=== PATIENT | male | born 1960 | race Caucasian/White ===

== ENCOUNTER → 2019-02-20 | Outpatient (CLI) | payer BC, MEDICARE | LOC: LABWHC1 07:56 | DX: Z51.81 Encounter for therapeutic drug level monitoring (principal); Z79.899 Other long term (current) drug therapy | CPT/HCPCS: 36415 ==

== ENCOUNTER → 2020-02-14 | Outpatient (CLI) | payer BC, MEDICARE ==
[2020-02-14 18:15] LABS: ALT 23 U/L (10-49); AST 25 U/L (14-35)
[2020-02-14 18:28] LABS: Hepatitis A Antibody IgM Non-Reactive (Non-Reactive); Hepatitis B Core IgM Non-Reactive (Non-Reactive); Hepatitis B Surface Antigen Non-Reactive (Non-Reactive); Hepatitis C IgG Antibody Non-Reactive (Non-Reactive)
== END | disposition home or self-care (01) ==
LOC: LABWHC1 08:55
PROVIDERS: ATTEND Internal Medicine
DX: R94.5 Abnormal results of liver function studies (principal); R16.0 Hepatomegaly, not elsewhere classified
CPT/HCPCS: 36415; 80074; 84450; 84460

== ENCOUNTER → 2020-02-15 | Outpatient (CLI) | payer BC, MEDICARE ==
--- NOTE | 2020-02-15 11:06 | US ---
EXAMINATION TYPE: US liver DATE OF EXAM: 02/15/2020 COMPARISON: NONE CLINICAL HISTORY: R94.5 Abnormal Liver Function. Elevated liver enzymes, bloating x 2 to 3 months EXAM MEASUREMENTS: Liver Length: 15.1 cm Gallbladder Wall: 0.2 cm CBD: 0.5 cm Right Kidney: 9.6 x 5.2 x 4.3 cm Pancreas: obscured by overlying midline bowel gas Liver: mildly heterogeneous Gallbladder: wnl Evidence for sonographic Diego's sign: no CBD: visualized portions wnl, limited by overlying bowel gas Right Kidney: multiple tiny echogenic foci scattered throughout IMPRESSION: Mild fatty liver. Nonobstructing nephrolithiasis.
== END | disposition home or self-care (01) ==
LOC: RADUSWWP 10:32
PROVIDERS: ATTEND Internal Medicine
DX: K76.0 Fatty (change of) liver, not elsewhere classified (principal); N20.0 Calculus of kidney
CPT/HCPCS: 76705

== ENCOUNTER 2021-02-09 06:10 | Emergency (ER) | payer BC, MEDICARE ==
[2021-02-09 06:23] VITALS: TEMP 97.8
--- NOTE | 2021-02-09 07:26 | ED ---
Extremity Problem HPI - General Chief complaint: Extremity Problem,Nontraumatic Stated complaint: Poss Blood Clot in legs Time Seen by Provider: 02/09/21 06:28 Source: patient Mode of arrival: ambulatory Limitations: no limitations - History of Present Illness Initial comments: Patient is a 61-year-old male with history of ankylosing spondylitis, vascul itis, presenting to the emergency department with concerns of a possible blood clot in his bilateral lower legs. He states he does have history of blood clots in his legs as well as multiple PEs however they took him off his blood thinner secondary to his vasculitis. He has been off her blood thinners for a few years now. He states over the past 2-3 days he's noticed increased pain in his bilat eral lower calf, he states the left is worse than the right. He denies any falls or trauma, he normally walks with a cane. He wants to make sure this is not a blood clot versus his normal aches and pains. He denies any surgeries of his legs in the past. He does admit to bilateral hip replacement, and left knee replacement. He denies any chest pain or shortness of breath, no cough. He has no further complaints at this time. His vital signs are stable upon arrival. - Related Data Home Medications Medication Instructions Recorded Confirmed Lisinopril-Hctz 10-12.5 mg 1 each PO DAILY 12/15/13 12/15/13 [Zestoretic 10-12.5] Methadone [Dolophine] 10 mg PO QID 12/15/13 12/19/13 Zolpidem [Ambien] 10 mg PO HS 12/15/13 12/19/13 predniSONE 10 mg PO DAILY 12/15/13 12/15/13 Allergies Allergy/AdvReac Type Severity Reaction Status Date / Time No Known Allergies Allergy Verified 12/15/13 13:36 Review of Systems ROS Statement: Those systems with pertinent positive or pertinent negative responses have been documented in the HPI. ROS Other: All systems not noted in ROS Statement are negative. Past Medical History Past Medical History: GI Bleed, Hypertension Additional Past Medical History / Comment(s): ANKYLOSING SPONDYLITIS, HX OF POLYPS, SPONTANEOUS PNEUMOTHORAX X3 LT LUNG, PULMONARY EMBOLUS X2. PT STATES HE GOES TO [facility] Q 3 MONTHS FOR PROBLEMS WITH HIS BLOOD COUNT. History of Any Multi-Drug Resistant Organisms: None Reported Past Surgical History: Joint Replacement Additional Past Surgical History / Comment(s): ALESHA HIP REPLACEMENT, LT KNEE REPLACEMENT Past Anesthesia/Blood Transfusion Reactions: No Reported Reaction, Motion Sickness Past Psychological History: No Psychological Hx Reported Smoking Status: Never smoker Past Alcohol Use History: Rare Past Drug Use History: None Reported General Exam - General Exam Comments Initial Comments: GENERAL: Patient is well-developed and well-nourished. Patient is nontoxic and in no acute distress. HEAD: Atraumatic, normocephalic. EYES: Pupils equal round and reactive to light, extraocular movements intact, sclera anicteric, conjunctiva are normal. Eyelids were unremarkable. ENT: Moist mucous membranes. NECK: Normal range of motion, supple without lymphadenopathy or JVD. LUNGS: Unlabored respirations. Breath sounds clear to auscultation bilaterally and equal. No wheezes rales or rhonchi. HEART: Regular rate and rhythm without murmurs, rubs or gallops. ABDOMEN: Soft, nontender, normoactive bowel sounds. No guarding, no rebound. No masses appreciated. : Deferred MUSCULOSKELETAL: Normal extremities with adequate strength and normal range of motion, no pitting or edema. No clubbing or cyanosis. Pain with palpation of bilateral lower calf, left greater than the right. No erythema, no obvious swelling. Neurovascular intact bilateral lower extremities. NEUROLOGICAL: Patient is alert and oriented x 3. Normal speech, normal gait. PSYCH: Normal mood, normal affect. SKIN: Warm, Dry, normal turgor, no rashes or lesions noted. Limitations: no limitations Course Vital Signs 02/09/21 02/09/21 06:14 08:29 Temperature 97.8 F Pulse Rate 70 63 Respiratory 16 18 Rate Blood Pressure 131/99 145/77 O2 Sat by Pulse 96 99 Oximetry Medical Decision Making - Medical Decision Making Patient is a 61-year-old male with history of ankylosing spondylitis, vasculitis, presenting with bilateral lower calf pain increasing over the past 2-3 days. He's had a history of PEs, is no longer on blood thinners. His vital signs are stable. Her injury or trauma to his lower legs causes pain. Ultrasound of bilateral lower extremities is slightly limited due to patient's pain tolerance, there is a slight color defect within the mid left femoral vein and the pain appears to compress incompletely, this could relate to a small nonocclusive thrombus, no signs of an acute DVT is seen today. I discussed these findings with the patient. Recommend following up with his PCP. He is agreeable splenic care and is stable for discharge. Case discussed with Dr. Bartholomew. Return parameters were discussed with him and he verbalized understanding. Disposition Clinical Impression: Bilateral lower extremity pain Disposition: HOME SELF-CARE Condition: Stable Instructions (If sedation given, give patient instructions): Leg Pain (ED) Additional Instructions: Please return to the Emergency Department if symptoms worsen or any other concerns. Please follow-up with your primary care physician as discussed. Is patient prescribed a controlled substance at d/c from ED?: No Referrals: Stephanie Valdovinos MD [Primary Care Provider] - 1-2 days Time of Disposition: 08:51
--- NOTE | 2021-02-09 08:23 | US ---
EXAMINATION TYPE: US venous doppler duplex LE DATE OF EXAM: 02/09/2021 7:48 AM COMPARISON: US CLINICAL HISTORY: pain, swelling, hx of clots, no thinners. Pain and swelling in legs. Hx DVT and PE. Patient does not take blood thinners. SIDE PERFORMED: Bilateral TECHNIQUE: The lower extremity deep venous system is examined utilizing real time linear array sonog domonique with graded compression, doppler sonography and color-flow sonography. VESSELS IMAGED: Common Femoral Vein Deep Femoral Vein Greater Saphenous Vein * Femoral Vein Popliteal Vein Small Saphenous Vein * Proximal Calf Veins (* superficial vessels) Exam is limited due to patient pain tolerance. Right Leg: Color flow seen in veins imaged. Veins imaged appear to compress. Left Leg: Difficult to compress veins in the left leg possibly due to pain tolerance. Slight color d efect seen within mid left femoral vein segment. Left mid femoral vein appears to compress incomplete ly. IMPRESSION: 1. Exam is limited due to patient pain tolerance. 2. Slight color defect seen within mid left femoral vein segment and the mid left femoral vein appea rs to compress incompletely. Findings could relate to small, nonocclusive thrombus.
[2021-02-09 08:32] VITALS: BP 145/77; PULSE 63; RESP 18
== END 2021-02-09 08:56 | disposition home or self-care (01) ==
LOC: EC 06:10
DX: M79.605 Pain in left leg (principal); M79.604 Pain in right leg; I10 Essential (primary) hypertension; Z86.711 Personal history of pulmonary embolism; Z79.899 Other long term (current) drug therapy
CPT/HCPCS: 93970; 99283

== ENCOUNTER → 2021-09-22 | Outpatient (CLI) | payer BC, MEDICARE ==
[2021-09-22 14:51] LABS: Basophils # (A) 0.03 X 10*3/uL (0.00-0.10); Basophils % (A) 0.4 %; Eosinophils # (A) 0.04 X 10*3/uL (0.04-0.35); Eosinophils % (A) 0.5 %; HCT 39.8 % (39.6-50.0); HGB 12.9 g/dL (13.0-17.0); Immature Grans, Automated 0.4 %; Lymphocytes # (A) 2.37 X 10*3/uL (0.90-5.00); MCH 32.8 pg (27.0-32.0); MCHC 32.4 g/dL (32.0-37.0); MCV 101.3 fL (80.0-97.0); Mean Platelet Volume 10.2 fL (9.5-12.2); Monocytes # (A) 0.69 X 10*3/uL (0.20-1.00); Monocytes % (A) 8.5 %; NRBC Per 100 WBC 0 /100 WBCS (0.0-0.0); Neutrophils % (A) 61.2 %; Platelet Count 199 X 10*3/uL (140-440); RBC 3.93 X 10*6/uL (4.40-5.60); RDW 12.8 % (11.5-14.5); WBC 8.16 X 10*3/uL (4.50-10.00)
[2021-09-22 15:10] LABS: ALT 17 U/L (10-49); AST 24 U/L (14-35); African American GFR (CKD) 69.2 (60.0-200.0); Albumin 4.5 g/dL (3.8-4.9); Albumin/Globulin Ratio 1.96 (1.60-3.17); Alkaline Phosphatase 63 U/L (41-126); Bilirubin, Conjugated <0.20 mg/dL (0.20-0.40); Globulin 2.3 g/dL (1.6-3.3); Non-African American GFR(CKD) 59.7 (60.0-200.0); Total Protein 6.8 g/dL (6.2-8.2)
[2021-09-22 15:19] LABS: Hepatitis B Surface AB- Quant 3.5 mIU/mL; Hepatitis B Surface Antibody Nonreactive (Nonreactive)
[2021-09-22 15:25] LABS: Hepatitis B Core IgM Nonreactive (Nonreactive); Hepatitis B Surface Antigen Nonreactive (Nonreactive)
[2021-09-22 16:01] LABS: Erythrocyte Sedimentation Rate 22 mm/Hr (0-20)
== END | disposition home or self-care (01) ==
LOC: LABWHC1 09:19
PROVIDERS: ATTEND Internal Medicine Rheumatology
DX: D84.821 Immunodeficiency due to drugs (principal); T38.0X5A Adverse effect of glucocorticoids and synthetic analogues, initial encounter; Z79.52 Long term (current) use of systemic steroids
CPT/HCPCS: 36415; 80076; 82565; 85025; 85652; 86140; 86704; 86705; 86706; 87340

== ENCOUNTER → 2021-10-22 | Outpatient (CLI) | payer BC, MEDICARE ==
[2021-10-22 17:02] VITALS: BP 149/90; PULSE 94; TEMP 97.8; BMI 42.3
--- NOTE | 2021-10-22 17:28 | P.HPBAR ---
Bariatric H&P - History & Physicial H&P Date: 10/22/21 History & Physicial: Visit/CC: new patient Patient initial contact: Initial weight: Initial weight in pounds: Height: 5 ft 5.75 in Initial BMI: Last weight: Current weight: 117.934 kg Current weight in pounds: 260.00 Current BMI: 42.3 [place] body weight (based on NIH guidelines): 63.73 kg Excess body weight loss: The patient is a 61 year-old M who presents for Bariatric Assessment. Highest weight of 275 pounds. He was on prednisone of 60 mg daily. He has ankloysis spondllyisis. He presents with a cane. He stopped drinking candy, pop, and ice cream. He had EGD and colon. He has history of blood clots 5 to 6 years ago in the legs. He had EGD and colon at [facility] last year. Recommend esophagram. Reommend bariatric labs. Has history of h pylori. Family of colon cancer. Has [facility] Past Medical History Past Medical History: GI Bleed, Hypertension Additional Past Medical History / Comment(s): ANKYLOSING SPONDYLITIS, HX OF POLYPS, SPONTANEOUS PNEUMOTHORAX X3 LT LUNG, PULMONARY EMBOLUS X2. PT STATES HE GOES TO [facility] Q 3 MONTHS FOR PROBLEMS WITH HIS BLOOD COUNT. History of Any Multi-Drug Resistant Organisms: None Reported Past Surgical History: Joint Replacement Additional Past Surgical History / Comment(s): ALESHA HIP REPLACEMENT, LT KNEE REPLACEMENT Past Anesthesia/Blood Transfusion Reactions: No Reported Reaction, Motion Sickness Past Psychological History: No Psychological Hx Reported Smoking Status: Never smoker Past Alcohol Use History: Rare Past Drug Use History: None Reported Surgical - Exam Vital Signs Temp Pulse BP 97.8 F 94 149/90 10/22/21 16:52 10/22/21 16:52 10/22/21 16:52 Bariatric Checklist Checklist: Plan: Checklist: EGD: 1. Hiatal hernia: 2. H. Pylori: HgbA1c: Vitamin D: Smoking: Never smoker Primary care physician referral: Dr. Valdovinos Psychiatry clearance: Cardiology clearance: Sleep study: Diet journal: VTE risk score: VTE risk level: Rehab needs at discharge:
== END | disposition home or self-care (01) ==
LOC: BARWHC3 14:42
PROVIDERS: ATTEND Surgery Plastic and Reconstructive Surgery
DX: Z48.815 Encounter for surgical aftercare following surgery on the digestive system (principal)
CPT/HCPCS: 99211

== ENCOUNTER → 2021-10-24 | Outpatient (CLI) | payer BC, MEDICARE ==
[2021-10-24 10:24] LABS: INR 0.9 (<1.2); Partial Thromboplastin Time 22.6 sec (22.0-30.0); Prothrombin Time 9.6 sec (9.0-12.0)
[2021-10-24 14:57] LABS: HCT 39.4 % (39.6-50.0); MCH 33.2 pg (27.0-32.0); MCV 100.8 fL (80.0-97.0); Mean Platelet Volume 10.1 fL (9.5-12.2); NRBC Per 100 WBC 0 /100 WBCS (0.0-0.0); Platelet Count 190 X 10*3/uL (140-440); RBC 3.91 X 10*6/uL (4.40-5.60); RDW 12.8 % (11.5-14.5); WBC 7.75 X 10*3/uL (4.50-10.00)
[2021-10-24 15:14] LABS: % Iron Saturation 17.75 (15.00-50.00); ALT 22 U/L (10-49); AST 22 U/L (14-35); African American GFR (CKD) 76.3 (60.0-200.0); Albumin 4.4 g/dL (3.8-4.9); Albumin/Globulin Ratio 1.69 (1.60-3.17); Alkaline Phosphatase 59 U/L (41-126); BUN/Creat Ratio 16.75 Ratio (12.00-20.00); Blood Urea Nitrogen 20.1 mg/dL (9.0-27.0); Calcium 8.9 mg/dL (8.7-10.3); Carbon Dioxide 20.7 mmol/L (20.0-27.5); Chloride 103 mmol/L (96-109); Globulin 2.6 g/dL (1.6-3.3); Glucose 110 mg/dL (70-110); Iron 57 ug/dL (65-175); Non-African American GFR(CKD) 65.8 (60.0-200.0); Phosphorus 3.1 mg/dL (2.4-5.1); Potassium 4.1 mmol/L (3.5-5.5); Sodium 137 mmol/L (135-145); Total Iron Binding Capacity 323 ug/dL (228-460)
[2021-10-24 15:34] LABS: Chol/HDL Ratio 3.24 Ratio; LDL Cholesterol,Calculated 103.7 mg/dL (0.0-131.0)
[2021-10-27 08:56] LABS: Vit B1(Thiamine) 93 ug/L (38-122)
[2021-10-27 16:08] LABS: Zinc, Serum 73 ug/dL (60-130)
[2021-10-27 17:26] LABS: Selenium 106 mcg/L (63-160)
[2021-10-28 09:33] LABS: Anabasine Urine <2.0 ng/mL (<2.0)
[2021-10-29 08:38] LABS: Vitamin A 75 ug/dL (38-106)
== END | disposition home or self-care (01) ==
LOC: LABWHC1 09:10
PROVIDERS: ATTEND Surgery Plastic and Reconstructive Surgery
DX: E66.01 Morbid (severe) obesity due to excess calories (principal); D50.8 Other iron deficiency anemias; D50.9 Iron deficiency anemia, unspecified; K91.2 Postsurgical malabsorption, not elsewhere classified; E46 Unspecified protein-calorie malnutrition; K74.1 Hepatic sclerosis; N19 Unspecified kidney failure; T56.894A Toxic effect of other metals, undetermined, initial encounter; K50.90 Crohn's disease, unspecified, without complications
CPT/HCPCS: 36415; 80053; 80061; 80307; 80323; 82306; 82525; 82607; 82728; 82746; 83036; 83540; 83550; 83735; 83970; 84100; 84134; 84255; 84425; 84443; 84590; 84630; 85027; 85610; 85730; 93005

== ENCOUNTER 2021-11-24 10:43 | Day surgery (SDC) | payer BC, MEDICARE ==
[2021-11-21 10:52] VITALS: BMI 43.6
--- NOTE | 2021-11-24 07:29 | P.GSHP ---
History of Present Illness H&P Date: 11/24/21 CHIEF COMPLAINT: GERD HISTORY OF PRESENT ILLNESS: The patient is a 61-year-old male who presents reports gastroesophageal reflux disease. Upper endoscopy was offered for further evaluation and management. PAST MEDICAL HISTORY: Please see list. PAST SURGICAL HISTORY: Please see list. MEDICATIONS: Please see list. ALLERGIES: Please see list. SOCIAL HISTORY: No illicit drug use FAMILY HISTORY: No reports of Crohn disease or ulcerative colitis. REVIEW OF ORGAN SYSTEMS: CONSTITUTIONAL: No reports of fevers or chills. GI: Denies any blood in stools or constipation. PHYSICAL EXAM: VITAL SIGNS: Stable GENERAL: Well-developed and pleasant in no acute distress. HEENT: No scleral icterus. Extraocular movements grossly intact. Moist buccal mucosa. NECK: Supple without lymphadenopathy. CHEST: Unlabored respirations. Equal bilateral excursions. CARDIOVASCULAR: Regular rate and rhythm. Distal 2+ pulses. ABDOMEN: Soft, nondistended. MUSCULOSKELETAL: No clubbing, cyanosis, or edema. ASSESSMENT: 1. Gastroesophageal reflux disease PLAN: 1. Recommend proceeding with an upper endoscopy Past Medical History Past Medical History: Cancer, GI Bleed, Hypertension, Pulmonary Embolus (PE) Additional Past Medical History / Comment(s): ANKYLOSING SPONDYLITIS, HX OF POLYPS, SPONTANEOUS PNEUMOTHORAX X3 LT LUNG, PULMONARY EMBOLUS X2. PT STATES HE GOES TO [facility] Q 3 MONTHS FOR PROBLEMS WITH HIS BLOOD COUNT. skin cancer History of Any Multi-Drug Resistant Organisms: None Reported Past Surgical History: Joint Replacement Additional Past Surgical History / Comment(s): ALESHA HIP REPLACEMENT, LT KNEE REPLACEMENT, skin cancer removed from left shoulder, colonoscopy< EGD Past Anesthesia/Blood Transfusion Reactions: Motion Sickness Smoking Status: Never smoker - Past Family History Father Additional Family Medical History / Comment(s): anklylosing spondylitis Medications and Allergies Home Medications Medication Instructions Recorded Confirmed Type Zolpidem [Ambien] 10 mg PO HS 12/15/13 11/21/21 History Abatacept [Orencia] 50 mg SQ FR 10/22/21 11/21/21 History Ergocalciferol [Vitamin D2 (1250 1,250 mcg PO DAILY 10/22/21 11/21/21 History Mcg = 60607 Iu)] Folic Acid 1 mg PO DAILY 10/22/21 11/21/21 History Leflunomide 10 mg PO DAILY 10/22/21 11/21/21 History lisinopriL [Zestril] 10 mg PO DAILY 10/22/21 11/21/21 History traZODone HCL 50 mg PO DAILY 10/22/21 11/21/21 History buprenorphine HCL [Belbuca] 1 film PO BID 10/27/21 11/21/21 History Allergies Allergy/AdvReac Type Severity Reaction Status Date / Time No Known Allergies Allergy Verified 11/21/21 10:41
[~2021-11-24 10:43] MED LIST: LACTATED RINGERS 1,000 ML IV SCH
[2021-11-24 11:05] VITALS: TEMP 97
[2021-11-24] MEDS ORDERED: LIDOCAINE 2% INJ 20 MG/ML (2 ML VIAL) ONE (11:55)
[2021-11-24] MEDS ORDERED: PROPOFOL 10 MG/ML 20 ML VIAL IV ONE (11:55)
--- NOTE | 2021-11-24 12:13 | P.PCN ---
Date of Procedure: 11/24/21 Description of Procedure: PREOPERATIVE DIAGNOSIS: Gastroesophageal reflux disease. Morbid obesity. POSTOPERATIVE DIAGNOSIS: Gastroesophageal reflux disease. Morbid obesity. Gastritis. OPERATION: Esophagogastroduodenoscopy with biopsies along antrum. SURGEON: Clary Burrell MD ANESTHESIA: MAC. INDICATIONS: The patient is a 61-year-old female who presents with reflux disease. Benefits and risks of the procedure were described. Informed consent was obtained. DESCRIPTION: The patient was brought into the endoscopy suite and laid in the left lateral decubitus position. An Olympus gastroscope was passed along the posterior oropharynx down to the distal esophagus where the squamocolumnar junction was encountered at 37 cm from the incisors. The stomach was entered and no bile reflux was found. Additional findings are listed below. Biopsies with cold forceps were obtained of the antrum. The first through third portion of the duodenum was examined. Retroflexion of the scope confirmed Hill grade 3 lower esophageal valve. The squamocolumnar junction demonstrated LA grade B erosive esophagitis. The stomach was desufflated. The patient tolerated the procedure well. FINDINGS: Squamocolumnar junction 37 cm from the incisors. Diaphragmatic hiatus at 37 cm. Hill grade 2 lower esophageal valve. LA grade B erosive esophagitis. No active duodenitis. Chronic gastritis RECOMMENDATIONS: Upper endoscopy as needed. Plan - Discharge Summary New Discharge Prescriptions: Continue Zolpidem [Ambien] 10 mg PO HS traZODone HCL 50 mg PO DAILY Folic Acid 1 mg PO DAILY Leflunomide 10 mg PO DAILY Ergocalciferol [Vitamin D2 (1250 Mcg = 02940 Iu)] 1,250 mcg PO DAILY Abatacept [Orencia] 50 mg SQ FR buprenorphine HCL [Belbuca] 1 film PO BID lisinopriL [Zestril] 10 mg PO DAILY Discharge Medication List Zolpidem [Ambien] 10 mg PO HS 12/15/13 [History] Abatacept [Orencia] 50 mg SQ FR 10/22/21 [History] Ergocalciferol [Vitamin D2 (1250 Mcg = 43015 Iu)] 1,250 mcg PO DAILY 10/22/21 [History] Folic Acid 1 mg PO DAILY 10/22/21 [History] Leflunomide 10 mg PO DAILY 10/22/21 [History] lisinopriL [Zestril] 10 mg PO DAILY 10/22/21 [History] traZODone HCL 50 mg PO DAILY 10/22/21 [History] buprenorphine HCL [Belbuca] 1 film PO BID 10/27/21 [History] [facility]Ref[place] [facility] Patient Instructions/Handouts: *Surgery [facility] - (Anesthesia) Endoscopy Discharge Instructions, Upper Endoscopy (DC) Discharge Disposition: HOME SELF-CARE
[2021-11-24 12:28] VITALS: BP 121/66; PULSE 50; RESP 18
== END 2021-11-24 12:51 | disposition home or self-care (01) ==
LOC: ORWHC2ENDO 10:43
PROVIDERS: ATTEND Surgery Plastic and Reconstructive Surgery
DX: K29.50 Unspecified chronic gastritis without bleeding (principal); K22.10 Ulcer of esophagus without bleeding; K21.9 Gastro-esophageal reflux disease without esophagitis; E66.01 Morbid (severe) obesity due to excess calories; I10 Essential (primary) hypertension; Z86.711 Personal history of pulmonary embolism; Z85.828 Personal history of other malignant neoplasm of skin; Z79.899 Other long term (current) drug therapy
CPT/HCPCS: 88305; 43239; J2704; J2001

== ENCOUNTER → 2021-12-10 | Outpatient (CLI) | payer BC, MEDICARE ==
[2021-12-10 14:07] VITALS: BP 149/81; PULSE 55; TEMP 98.1; BMI 42.9
--- NOTE | 2021-12-10 14:25 | P.BASOAP ---
Subjective Progress Note Date: 12/10/21 Looking into the sleeve. Labs reviewed. Recommend iron with MVI. EKG good. Plan for sleeve. He is doing okay. He is now going from band to sleeve. Risk reviewed with [facility] Objective - Vital Signs Vital signs: Vital Signs Temp 98.1 F 12/10/21 14:02 Pulse 55 L 12/10/21 14:02 Resp BP 149/81 12/10/21 14:02 Pulse Ox FiO2 Intake & Output 12/09/21 12/10/21 12/10/21 18:59 06:59 18:59 Weight 119.748 kg Assessment/Plan Plan: Date: 12/10/21 Initial Weight: Initial BMI: Current Weight: 119.748 kg Current BMI: 42.9 Type of Surgery: Total Volume in Band: Previous Volume: Volume Removed: Volume Added: Band Size:
== END | disposition home or self-care (01) ==
LOC: BARWHC3 13:27
PROVIDERS: ATTEND Surgery Plastic and Reconstructive Surgery
DX: Z48.815 Encounter for surgical aftercare following surgery on the digestive system (principal)
CPT/HCPCS: 99211

== ENCOUNTER → 2022-03-05 | Outpatient (CLI) | payer BC, MEDICARE ==
[2022-03-05 17:08] LABS: African American GFR (CKD) 70.7 (60.0-200.0)
== END | disposition home or self-care (01) ==
LOC: LABWHC1 08:09
PROVIDERS: ATTEND Internal Medicine Rheumatology
DX: T45.2X1A Poisoning by vitamins, accidental (unintentional), initial encounter (principal); N17.9 Acute kidney failure, unspecified
CPT/HCPCS: 36415; 82306; 82565

== ENCOUNTER 2022-06-15 15:12 | Emergency (ER) | payer BC, MEDICARE ==
--- NOTE | 2022-06-15 15:26 | ED ---
General Adult HPI <Reji Nielson - Last Filed: 06/15/22 15:22> - History of Present Illness Onset/Timin -: days(s) Location: abdomen Quality: burning Consistency: now resolved Improves with: none Worsens with: none Associated Symptoms: other (General bleeding) Treatments Prior to Arrival: none <Ran Martínez - Last Filed: 06/15/22 19:26> - General Stated complaint: GI Bleed - History of Present Illness Initial comments: Dictation was produced using [employer] dictation software. please excuse any grammatical, word or spelling errors. Medical screening exam: 62-year-old male presents emergency department for GI bleeding 3 days. Patient has a history of pulmonary embolism. States that he's been feeling short of breath. Patient has not been on anticoagulation medications for several months. Denies any calf tenderness. Patient spoke with rheumatology infusion center that told to come to the ER after he revealed to them that he has been having bright red blood per rectum. Does report having some vague periumbilical abdominal pain. He is also having rectal pressure. Patient well-appearing at the bedside in no acute distress. He is not gait ataxic. (Reji Nielson) Patient is a 62-year-old man presenting with approximately 3 days of abdominal symptoms and 2 days of passing blood with bowel movements. Patient states that 4 days ago he received injection of Remicade for his ankylosing spondylitis. The day after that he was having some upper abdominal burning discomfort. The day after that he noticed there was some bright red blood with bowel movements. He thought that this would all pass. He has continued to have some dark red blood today and a little bit of fatigue so he felt he should have an evaluation. There is no further abdominal discomfort now. (Ran Martínez) - Related Data Home Medications Medication Instructions Recorded Confirmed lisinopriL [Zestril] 10 mg PO DAILY 10/22/21 06/15/22 traZODone HCL 75 mg PO HS 10/22/21 06/15/22 Buprenorphine HCl/Naloxone HCl 0.5 film SL QID 06/15/22 06/15/22 [Suboxone 2 mg-0.5 mg Sl Film] Cholecalciferol [Vitamin D3 (25 50 mcg PO DAILY 06/15/22 06/15/22 Mcg = 1000 Iu)] predniSONE 10 mg PO DAILY 06/15/22 06/15/22 Allergies Allergy/AdvReac Type Severity Reaction Status Date / Time No Known Allergies Allergy Verified 11/24/21 11:09 Review of Systems ROS Other: All systems not noted in ROS Statement are negative. <Reji Nielson - Last Filed: 06/15/22 15:22> ROS Other: All systems not noted in ROS Statement are negative. Constitutional: Denies: fever, chills, weakness Respiratory: Denies: cough, dyspnea Cardiovascular: Denies: chest pain, palpitations, edema, syncope Endocrine: Reports: fatigue Gastrointestinal: Reports: as per HPI, abdominal pain. Denies: nausea, vomiting, diarrhea, constipation, melena, hematochezia Genitourinary: Denies: dysuria, hematuria Musculoskeletal: Denies: back pain Skin: Denies: rash Neurological: Denies: headache, weakness Hematological/Lymphatic: Denies: easy bleeding <Ran Martínez - Last Filed: 06/15/22 19:26> ROS Statement: Those systems with pertinent positive or pertinent negative responses have been documented in the HPI. Past Medical History Past Medical History: Cancer, GI Bleed, Hypertension, Pulmonary Embolus (PE) Additional Past Medical History / Comment(s): ANKYLOSING SPONDYLITIS, HX OF POLYPS, SPONTANEOUS PNEUMOTHORAX X3 LT LUNG, PULMONARY EMBOLUS X2. PT STATES HE GOES TO [facility] Q 3 MONTHS FOR PROBLEMS WITH HIS BLOOD COUNT. skin cancer History of Any Multi-Drug Resistant Organisms: None Reported Past Surgical History: Joint Replacement Additional Past Surgical History / Comment(s): ALESHA HIP REPLACEMENT, LT KNEE REPLACEMENT, skin cancer removed from left shoulder, colonoscopy< EGD Past Anesthesia/Blood Transfusion Reactions: Motion Sickness Past Psychological History: No Psychological Hx Reported Smoking Status: Never smoker Past Alcohol Use History: Rare Past Drug Use History: None Reported - Past Family History Father Additional Family Medical History / Comment(s): anklylosing spondylitis <Reji Nielson - Last Filed: 06/15/22 15:22> General Exam General appearance: alert, in no apparent distress Head exam: Present: atraumatic, normocephalic Eye exam: Present: normal appearance. Absent: scleral icterus, conjunctival injection Neck exam: Present: normal inspection Respiratory exam: Present: normal lung sounds bilaterally. Absent: respiratory distress, wheezes, rales, rhonchi, stridor Cardiovascular Exam: Present: normal rhythm, bradycardia, normal heart sounds. Absent: systolic murmur, diastolic murmur, rubs, gallop GI/Abdominal exam: Present: soft. Absent: distended, tenderness, guarding, rebound, rigid, mass Extremities exam: Present: normal inspection, normal capillary refill. Absent: pedal edema, calf tenderness Back exam: Present: normal inspection. Absent: CVA tenderness (R), CVA tenderness (L) Neurological exam: Present: alert Skin exam: Present: warm, dry, intact, normal color. Absent: rash <Ran Martínez - Last Filed: 06/15/22 19:26> Course Vital Signs 06/15/22 06/15/22 15:37 18:00 Temperature 97.7 F Pulse Rate 50 L 49 L Respiratory 16 18 Rate Blood Pressure 167/74 116/87 O2 Sat by Pulse 96 98 Oximetry Medical Decision Making - Lab Data Result diagrams: 06/15/22 17:03 06/15/22 17:03 - EKG Data -: EKG Interpreted by Ar EKG shows normal: sinus rhythm, axis (Normal), intervals (Normal), QRS complexes (Normal), ST-T waves (Normal) Rate: bradycardia (Rate 48 bpm) <Ran Martínez - Last Filed: 06/15/22 19:26> - Lab Data Lab Results 06/15/22 06/15/22 06/15/22 Range/Units 17:03 17:03 17:03 WBC 9.2 (3.8-10.6) k/uL RBC 4.25 L (4.30-5.90) m/uL Hgb 14.1 (13.0-17.5) gm/dL Hct 40.9 (39.0-53.0) % MCV 96.4 (80.0-100.0) fL MCH 33.2 (25.0-35.0) pg MCHC 34.4 (31.0-37.0) g/dL RDW 13.5 (11.5-15.5) % Plt Count 195 (150-450) k/uL MPV 7.2 Neutrophils % 49 % Lymphocytes % 43 % Monocytes % 5 % Eosinophils % 2 % Basophils % 1 % Neutrophils # 4.5 (1.3-7.7) k/uL Lymphocytes # 4.0 (1.0-4.8) k/uL Monocytes # 0.4 (0-1.0) k/uL Eosinophils # 0.2 (0-0.7) k/uL Basophils # 0.1 (0-0.2) k/uL PT 9.6 (9.0-12.0) sec INR 0.9 (<1.2) APTT 23.2 (22.0-30.0) sec D-Dimer 0.22 (<0.60) mg/L FEU Sodium 136 L (137-145) mmol/L Potassium 4.6 (3.5-5.1) mmol/L Chloride 104 (98-107) mmol/L Carbon Dioxide 24 (22-30) mmol/L Anion Gap 8 mmol/L BUN 16 (9-20) mg/dL Creatinine 1.19 (0.66-1.25) mg/dL Est GFR (CKD-EPI)AfAm 76 (>60 ml/min/1.73 sqM) Est GFR (CKD-EPI)NonAf 66 (>60 ml/min/1.73 sqM) Glucose 94 (74-99) mg/dL Plasma Lactic Acid Loco (0.7-2.0) mmol/L Calcium 8.8 (8.4-10.2) mg/dL Magnesium 1.9 (1.6-2.3) mg/dL Total Bilirubin 0.7 (0.2-1.3) mg/dL AST 30 (17-59) U/L ALT 21 (4-49) U/L Alkaline Phosphatase 50 (38-126) U/L Troponin I (0.000-0.034) ng/mL Total Protein 8.0 (6.3-8.2) g/dL Albumin 4.5 (3.5-5.0) g/dL Stool Occult Blood (Negative) Blood Type Blood Type Recheck Bld Type Recheck Status Antibody Screen Spec Expiration Date 06/15/22 06/15/22 06/15/22 Range/Units 17:03 17:03 17:03 WBC (3.8-10.6) k/uL RBC (4.30-5.90) m/uL Hgb (13.0-17.5) gm/dL Hct (39.0-53.0) % MCV (80.0-100.0) fL MCH (25.0-35.0) pg MCHC (31.0-37.0) g/dL RDW (11.5-15.5) % Plt Count (150-450) k/uL MPV Neutrophils % % Lymphocytes % % Monocytes % % Eosinophils % % Basophils % % Neutrophils # (1.3-7.7) k/uL Lymphocytes # (1.0-4.8) k/uL Monocytes # (0-1.0) k/uL Eosinophils # (0-0.7) k/uL Basophils # (0-0.2) k/uL PT (9.0-12.0) sec INR (<1.2) APTT (22.0-30.0) sec D-Dimer (<0.60) mg/L FEU Sodium (137-145) mmol/L Potassium (3.5-5.1) mmol/L Chloride (98-107) mmol/L Carbon Dioxide (22-30) mmol/L Anion Gap mmol/L BUN (9-20) mg/dL Creatinine (0.66-1.25) mg/dL Est GFR (CKD-EPI)AfAm (>60 ml/min/1.73 sqM) Est GFR (CKD-EPI)NonAf (>60 ml/min/1.73 sqM) Glucose (74-99) mg/dL Plasma Lactic Acid Loco 0.7 (0.7-2.0) mmol/L Calcium (8.4-10.2) mg/dL Magnesium (1.6-2.3) mg/dL Total Bilirubin (0.2-1.3) mg/dL AST (17-59) U/L ALT (4-49) U/L Alkaline Phosphatase (38-126) U/L Troponin I <0.012 (0.000-0.034) ng/mL Total Protein (6.3-8.2) g/dL Albumin (3.5-5.0) g/dL Stool Occult Blood (Negative) Blood Type O Positive Blood Type Recheck O Pos Bld Type Recheck Status No Antibody Screen NEGATIVE Spec Expiration Date 06/18/2022230206/15/22 Range/Units 18:43 WBC (3.8-10.6) k/uL RBC (4.30-5.90) m/uL Hgb (13.0-17.5) gm/dL Hct (39.0-53.0) % MCV (80.0-100.0) fL MCH (25.0-35.0) pg MCHC (31.0-37.0) g/dL RDW (11.5-15.5) % Plt Count (150-450) k/uL MPV Neutrophils % % Lymphocytes % % Monocytes % % Eosinophils % % Basophils % % Neutrophils # (1.3-7.7) k/uL Lymphocytes # (1.0-4.8) k/uL Monocytes # (0-1.0) k/uL Eosinophils # (0-0.7) k/uL Basophils # (0-0.2) k/uL PT (9.0-12.0) sec INR (<1.2) APTT (22.0-30.0) sec D-Dimer (<0.60) mg/L FEU Sodium (137-145) mmol/L Potassium (3.5-5.1) mmol/L Chloride (98-107) mmol/L Carbon Dioxide (22-30) mmol/L Anion Gap mmol/L BUN (9-20) mg/dL Creatinine (0.66-1.25) mg/dL Est GFR (CKD-EPI)AfAm (>60 ml/min/1.73 sqM) Est GFR (CKD-EPI)NonAf (>60 ml/min/1.73 sqM) Glucose (74-99) mg/dL Plasma Lactic Acid Loco (0.7-2.0) mmol/L Calcium (8.4-10.2) mg/dL Magnesium (1.6-2.3) mg/dL Total Bilirubin (0.2-1.3) mg/dL AST (17-59) U/L ALT (4-49) U/L Alkaline Phosphatase (38-126) U/L Troponin I (0.000-0.034) ng/mL Total Protein (6.3-8.2) g/dL Albumin (3.5-5.0) g/dL Stool Occult Blood Negative (Negative) Blood Type Blood Type Recheck Bld Type Recheck Status Antibody Screen Spec Expiration Date Disposition <NagaReji D - Last Filed: 06/15/22 15:22> Is patient prescribed a controlled substance at d/c from ED?: No <Ran Martínez - Last Filed: 06/15/22 19:26> Clinical Impression: GI bleeding Disposition: HOME SELF-CARE Condition: Good Instructions (If sedation given, give patient instructions): Gastrointestinal Bleeding (ED) Referrals: Stephanie Valdovinos MD [Primary Care Provider] - 1-2 days Sara Flynn MD [STAFF PHYSICIAN] - 1-2 days
[2022-06-15 15:39] VITALS: TEMP 97.7
[2022-06-15 17:16] LABS: Basophils # (A) 0.1 k/uL (0-0.2); Basophils % (A) 1 %; Eosinophils # (A) 0.2 k/uL (0-0.7); Eosinophils % (A) 2 %; HCT 40.9 % (39.0-53.0); HGB 14.1 gm/dL (13.0-17.5); Lymphocytes % (A) 43 %; MCH 33.2 pg (25.0-35.0); MCHC 34.4 g/dL (31.0-37.0); MCV 96.4 fL (80.0-100.0); Mean Platelet Volume 7.2; Monocytes # (A) 0.4 k/uL (0-1.0); Monocytes % (A) 5 %; Neutrophils # (A) 4.5 k/uL (1.3-7.7); Neutrophils % (A) 49 %; Platelet Count 195 k/uL (150-450); RBC 4.25 m/uL (4.30-5.90); RDW 13.5 % (11.5-15.5); WBC 9.2 k/uL (3.8-10.6)
[2022-06-15 17:36] LABS: Albumin 4.5 g/dL (3.5-5.0); Calcium 8.8 mg/dL (8.4-10.2); Magnesium 1.9 mg/dL (1.6-2.3); Potassium 4.6 mmol/L (3.5-5.1); Total Bilirubin 0.7 mg/dL (0.2-1.3)
[2022-06-15 18:00] LABS: INR 0.9 (<1.2)
[2022-06-15 18:01] LABS: Partial Thromboplastin Time 23.2 sec (22.0-30.0); Prothrombin Time 9.6 sec (9.0-12.0)
[2022-06-15 18:43] VITALS: BP 116/87; PULSE 49; RESP 18
== END 2022-06-15 19:45 | disposition home or self-care (01) ==
LOC: EC 15:12
DX: K92.2 Gastrointestinal hemorrhage, unspecified (principal); I10 Essential (primary) hypertension; Z86.711 Personal history of pulmonary embolism; Z79.899 Other long term (current) drug therapy
CPT/HCPCS: 36415; 80053; 82272; 83605; 83735; 84484; 85025; 85379; 85610; 85730; 86850; 86900; 86901; 93005; 99285

== ENCOUNTER → 2022-10-01 | Outpatient (CLI) | payer BC, MEDICARE | END | disposition home or self-care (01) | LOC: LABWHC1 16:12 | PROVIDERS: ATTEND Internal Medicine | DX: R10.9 Unspecified abdominal pain (principal); Z86.19 Personal history of other infectious and parasitic diseases | CPT/HCPCS: 87338 ==

== ENCOUNTER → 2023-04-09 | Outpatient (CLI) | payer BC, MEDICARE ==
[2023-04-09 10:11] LABS: African American GFR (CKD) 68 (>60 ml/min/1.73 sqM); Blood Urea Nitrogen 20 mg/dL (9-20); Non-African American GFR(CKD) 59 (>60 ml/min/1.73 sqM)
--- NOTE | 2023-04-09 12:31 | CT ---
EXAMINATION TYPE: CT urogram wo/w con DATE OF EXAM: 04/09/2023 COMPARISON: 06/21/2011 HISTORY: 63-year-old male R31.9, hematuria TECHNIQUE: Contiguous axial scanning of the abdomen and pelvis performed without and with IV Contrast , patient injected with 80 mL of Isovue 300. Delayed images through the kidneys and bladder were obta ined. Coronal/sagittal reconstructions performed. 3-D reconstructions generated on a dedicated workst atVidSys. CT DLP: 4083 mGycm Automated exposure control for dose reduction was used. FINDINGS: Heart normal size without pericardial effusion. Scattered LAD and RCA coronary artery calcifications are present. Mild circumferential wall thickening visualized distal esophagus. Prominent volume loss with asymmetr ic elevation right hemidiaphragm and right basilar opacity suggestive of atelectasis. No pleural effu diogo. No focal liver lesion or biliary ductal dilatation. Portal venous system is patent. Gallbladder, adrenal glands, spleen, and pancreas within normal limits. No dilated small bowel, free fluid, or free air. Some prominent fluid filled small bowel loops are pr esent throughout the abdomen especially mid to lower abdomen. No mesenteric or retroperitoneal lymphadenopathy. There is moderate stool burden. Normal appendix. Sigmoid diverticulosis. No pericolonic inflammatory change. Symmetric uptake and excretion of contrast from the kidneys. No nephrolithiasis or hydronephrosis. There is a punctate 2 mm nonobstructive right renal calculus. Redemonstrated cortical hypodensity lat eral lower pole left kidney measuring 1.1 cm compatible with a cyst. No suspicious renal mass is seen . There may be mild circumferential bladder wall thickening. Visualization of large parts of the pelvis including the bladder is markedly limited due to extensive streak and beam sepulveda artifact from the patient's bilateral total hip arthroplasties. No obvious fluid collection or lymphadenopathy within the pelvis. The majority of the bladder is obsc ured by beam hardening. Mild degenerative disc disease L5-S1. No osseous destructive process. IMPRESSION: 1. A SMALL BENIGN 1.1 CM CORTICAL CYST LEFT KIDNEY. PUNCTATE 2 MM NONOBSTRUCTIVE RIGHT RENAL STONE. 2. NO HYDRONEPHROSIS OR SUSPICIOUS RENAL MASS. NO ABNORMAL FILLING DEFECTS SEEN WITHIN THE RENAL OSMAN ECTING SYSTEMS OR ALONG THE COURSE OF THE URETERS. 3. ASSESSMENT OF THE BLADDER IS ESSENTIALLY NONDIAGNOSTIC DUE TO THE DEGREE OF BEAM HARDENING ARTIFAC T FROM THE PATIENT'S TOTAL HIP ARTHROPLASTIES. 4. MILD CIRCUMFERENTIAL WALL THICKENING DISTAL THIRD ESOPHAGUS; CORRELATE FOR ESOPHAGITIS. 5. PROMINENT VOLUME LOSS AT THE RIGHT BASE WITH ATELECTASIS AND ELEVATED RIGHT HEMIDIAPHRAGM. THIS IS NEW FROM 2012. IF CONCERN FOR HEMIDIAPHRAGMATIC PARALYSIS, A FLUOROSCOPIC SNIFF TEST CAN BE PERFORME D.
== END | disposition home or self-care (01) ==
LOC: RADCTMAIN 09:29
PROVIDERS: ATTEND Internal Medicine
DX: N20.0 Calculus of kidney (principal); K22.89 Other specified disease of esophagus; J98.11 Atelectasis; R31.9 Hematuria, unspecified; Z96.643 Presence of artificial hip joint, bilateral
CPT/HCPCS: 82565; 84520; 74178; 36415; 74400; Q9967

== ENCOUNTER → 2023-04-16 | Outpatient (CLI) | payer BC, MEDICARE ==
[2023-04-16 16:25] LABS: % Iron Saturation 32.87 (15.00-50.00); C Reactive Protein 0.8 mg/dL (0.00-0.80)
[2023-04-16 16:58] LABS: Reticulocyte % 1.78 % (0.10-1.80)
== END | disposition home or self-care (01) ==
LOC: LABWHC1 07:59
PROVIDERS: ATTEND Internal Medicine Rheumatology
DX: M45.9 Ankylosing spondylitis of unspecified sites in spine (principal); D75.89 Other specified diseases of blood and blood-forming organs
CPT/HCPCS: 36415; 82607; 82728; 82746; 83010; 83540; 83550; 83615; 83883; 85045; 85652; 86140

== ENCOUNTER → 2023-11-22 | Outpatient (CLI) | payer BC, MEDICARE ==
--- NOTE | 2023-11-24 17:42 | BD ---
EXAMINATION TYPE: Axial Bone Density DATE OF EXAM: 11/22/2023 CLINICAL HISTORY: 63 years old Male. ICD-10 CODE: M45.9 ANKYLOSING SPONDYLITIS OF UNSPECIFIED SITES Height: 66.25 Weight: 219 FRAX RISK QUESTIONS: Family History (Parent hip fracture): no Glucocorticoids (More than 3mos): yes (Ex: prednisone, prednisolone, methylprednisolone, dexamethasone, and hydrocortisone). History of Fracture in Adulthood: no Secondary Osteoporosis: no RISK FACTORS HISTORY OF: Surgery to Hip(right/left): yes, both When: 2004 MEDICATIONS: Thyroid Medications: no Osteoporosis Medications: no EXAM MEASUREMENTS: Bone mineral densitometry was performed using the [employer] System. Bone mineral density as measured about the Lumbar spine is: ----- L1-L4(G/cm2): 0.971 T Score Values are as follows: ----- L1: -1.2 ----- L2: -1.5 ----- L3: -1.8 ----- L4: -2.5 ----- L1-L4: -1.7 Z Score Values are as follows: ----- L1: -1.8 ----- L2: -2.2 ----- L3: -2.4 ----- L4: -3.1 ----- L1-L4: -2.4 Bone mineral density has: Decreased -9.3% since study of: 01/24/2003 Bone mineral density about the R hip (g/cm2): Bone mineral density about the L Wrist (g/cm2): 0.649 T Score values are as follows: -----Dist. R+U: -1.7 -----Prox. R+U: -1.0 -----Radius total: -1.5 Z Score values are as follows: -----Dist. R+U: -1.2 -----Prox. R+U: -0.6 -----Radius total: -1.0 Bone mineral density baseline FRAX%s: none IMPRESSION: Osteopenia (T Score between -2.5 and -1). There is slightly increased risk of fracture and the patient may be considered for treatment. Re-Screen 2-5 years. NOTE: T-SCORE=SD OF THE YOUNG ADULT MEAN.
== END | disposition home or self-care (01) ==
LOC: RADBDWWP 14:56
PROVIDERS: ATTEND Internal Medicine Rheumatology
DX: M85.89 Other specified disorders of bone density and structure, multiple sites (principal); M81.0 Age-related osteoporosis without current pathological fracture; M45.9 Ankylosing spondylitis of unspecified sites in spine
CPT/HCPCS: 77080

== ENCOUNTER 2023-11-30 04:03 | Emergency (ER) | payer BC, MEDICARE ==
[2023-11-30 04:28] VITALS: BP 145/116; PULSE 46; RESP 18; TEMP 98.5
--- NOTE | 2023-11-30 05:11 | ED ---
Upper Extremity HPI - General Chief Complaint: Extremity Injury, Upper Stated Complaint: Left shoulder injury Time Seen by Provider: 11/30/23 04:57 Source: patient, RN notes reviewed, old records reviewed Mode of arrival: ambulatory Limitations: no limitations - History of Present Illness Initial Comments: This is a 63-year-old male to the ER for evaluation of severe left shoulder pain significant pain in the left shoulder. Patient has persistent pain of the left shoulder with history of shoulder fracture. Patient had a fall landing on left shoulder, parent complaining of severe left shoulder pain full range of motion MD Complaint: Injury to:: left, shoulder -: hour(s) Other Extremity Injury: Shoulder: Left Handedness: right Place: home Severity scale (1-10): 8 Improves With: none Worsens With: none Context: fall, direct blow Associated Symptoms: denies other symptoms Treatments Prior to Arrival: other (0) - Related Data Home Medications Medication Instructions Recorded Confirmed lisinopriL [Zestril] 10 mg PO DAILY 10/22/21 06/15/22 traZODone HCL 75 mg PO HS 10/22/21 06/15/22 Buprenorphine HCl/Naloxone HCl 0.5 film SL QID 06/15/22 06/15/22 [Suboxone 2 mg-0.5 mg Sl Film] Cholecalciferol [Vitamin D3 (25 50 mcg PO DAILY 06/15/22 06/15/22 Mcg = 1000 Iu)] predniSONE 10 mg PO DAILY 06/15/22 06/15/22 Allergies Allergy/AdvReac Type Severity Reaction Status Date / Time No Known Allergies Allergy Verified 11/30/23 04:28 Review of Systems ROS Statement: Those systems with pertinent positive or pertinent negative responses have been documented in the HPI. ROS Other: All systems not noted in ROS Statement are negative. Past Medical History Past Medical History: Cancer, GI Bleed, Hypertension, Pulmonary Embolus (PE) Additional Past Medical History / Comment(s): ANKYLOSING SPONDYLITIS, HX OF POLYPS, SPONTANEOUS PNEUMOTHORAX X3 LT LUNG, PULMONARY EMBOLUS X2. PT STATES HE GOES TO [facility] MONTH[facility] FOR PROBLEMS WITH HIS BLOOD COUNT. skin cancer History of Any Multi-Drug Resistant Organisms: None Reported Past Surgical History: Joint Replacement Additional Past Surgical History / Comment(s): ALESHA HIP REPLACEMENT, LT KNEE REPLACEMENT, skin cancer removed from left shoulder, colonoscopy< EGD Past Anesthesia/Blood Transfusion Reactions: Motion Sickness Past Psychological History: No Psychological Hx Reported Smoking Status: Never smoker Past Alcohol Use History: Rare Past Drug Use History: None Reported - Past Family History Father Additional Family Medical History / Comment(s): anklylosing spondylitis General Exam Limitations: no limitations General appearance: alert, in no apparent distress Head exam: Present: atraumatic, normocephalic, normal inspection Eye exam: Present: normal appearance, PERRL, EOMI. Absent: scleral icterus, conjunctival injection, periorbital swelling ENT exam: Present: normal exam, mucous membranes moist Neck exam: Present: normal inspection. Absent: tenderness, meningismus, lymphadenopathy Respiratory exam: Present: normal lung sounds bilaterally. Absent: respiratory distress, wheezes, rales, rhonchi, stridor Cardiovascular Exam: Present: regular rate, normal rhythm, normal heart sounds. Absent: systolic murmur, diastolic murmur, rubs, gallop, clicks GI/Abdominal exam: Present: soft, normal bowel sounds. Absent: distended, tenderness, guarding, rebound, rigid Extremities exam: Present: normal inspection, full ROM, normal capillary refill. Absent: tenderness, pedal edema, joint swelling, calf tenderness Back exam: Present: normal inspection Neurological exam: Present: alert, oriented X3, CN II-XII intact Psychiatric exam: Present: normal affect, normal mood Skin exam: Present: warm, dry, intact, normal color. Absent: rash Course Vital Signs 11/30/23 04:24 Temperature 98.5 F Pulse Rate 46 L Respiratory 18 Rate Blood Pressure 145/116 O2 Sat by Pulse 96 Oximetry - Reevaluation(s) Reevaluation #1: 11/30/23 05:10 Medical records reviewed Reevaluation #2: 11/30/23 05:10 Patient symptoms unchanged Reevaluation #3: 11/30/23 05:10 Patient informed of results and questions answered Reevaluation #4: 11/30/23 05:10 Was pt. sent in by a medical professional or institution (, PA, RF TEST TECHNICIAN, urgent care, hospital, or senior living...) When possible be specific @ -no Did you speak to anyone other than the patient for history (EMS, parent, family, police, friend...)? What history was obtained from this source @ -no Did you review nursing and triage notes (agree or disagree)? Why? @ -agree Are old charts reviewed (outside hosp., previous admission, EMS record, old EKG, old radiological studies, urgent care reports/EKG's, senior living records)? Report findings @ -yes Differential Diagnosis (chest pain, altered mental status, abdominal pain women, abdominal pain men, vaginal bleeding, weakness, fever, dyspnea, syncope, headache, dizziness, GI bleed, back pain, seizure, CVA, palpatations, mental health, musculoskeletal)? @ -prior EKG interpreted by me (3pts min.). @ -no X-rays interpreted by me (1pt min.). @ -yes negative for acute disease CT interpreted by me (1pt min.). @ -no U/S interpreted by me (1pt. min.). @ -no What testing was considered but not performed or refused? (CT, X-rays, U/S, labs)? Why? @ -none What meds were considered but not given or refused? Why? @ -none Did you discuss the management of the patient with other professionals (professionals i.e. , PA, RF TEST TECHNICIAN, lab, RT, psych nurse, elementary school social worker, department of natural resources officer, teacher, special forces warrant officer, foster care case manager)? Give summary @ -no Was smoking cessation discussed for >3mins.? @ -no Was critical care preformed (if so, how long)? @ -no Were there social determinants of health that impacted care today? How? (Homelessness, low income, unemployed, alcoholism, drug addiction, transportation, low edu. Level, literacy, decrease access to med. care, nursing home, rehab)? @ -none Was there de-escalation of care discussed even if they declined (Discuss DNR or withdrawal of care, Hospice)? DNR status @ -no What co-morbidities impacted this encounter? (DM, HTN, Smoking, COPD, CAD, Cancer, CVA, ARF, Chemo, Hep., AIDS, mental health diagnosis, sleep apnea, morbid obesity)? @ -none Was patient admitted / discharged? Hospital course, mention meds given and route, prescriptions, significant lab abnormalities, going to OR and other pertinent info. @ - 63 male with severe left shoulder pain after a fall no fracture noted patient can be discharged home Discharge Undiagnosed new problem with uncertain prognosis? @ -no Drug Therapy requiring intensive monitoring for toxicity (Heparin, Nitro, Insulin, Cardizem)? @ -no Were any procedures done? @ -no Diagnosis/symptom? @ -Left shoulder pain Acute, or Chronic, or Acute on Chronic? @ -Acute Uncomplicated (without systemic symptoms) or Complicated (systemic symptoms)? @ -Complicated Side effects of treatment? @ -no Exacerbation, Progression, or Severe Exacerbation? @ -exacerbation Poses a threat to life or bodily function? How? (Chest pain, [place], [place], pneumonia, PE, COPD, DKA, ARF, appy, cholecystitis, CVA, Diverticulitis, Homicidal, Suic idal, threat to staff... and all critical care pts) @ -no Medical Decision Making - Medical Decision Making 63 male with severe left shoulder pain after a fall no fracture noted patient can be discharged home - Radiology Data Radiology results: report reviewed (X-ray left shoulder negative for traumatic injury), image reviewed Disposition Clinical Impression: Strain of shoulder, Fall Disposition: HOME SELF-CARE Instructions (If sedation given, give patient instructions): Shoulder Pain (ED) Is patient prescribed a controlled substance at d/c from ED?: No Referrals: Pankaj Dong MD [Primary Care Provider] - 1-2 days Time of Disposition: 05:00
--- NOTE | 2023-11-30 07:26 | XR ---
EXAM: XR Left Shoulder Complete, 2 or More Views CLINICAL HISTORY: Pain TECHNIQUE: 3 views of the left shoulder. COMPARISON: No relevant prior studies available. FINDINGS: Bones/joints: There is no evidence of acute fracture or dislocation. Mild cortical deformity of the lateral left humeral head may be associated with prior dislocation. Soft tissues: Unremarkable. IMPRESSION: evidence of acute osseous abnormality.
== END 2023-11-30 05:40 | disposition home or self-care (01) ==
LOC: EC 04:03
DX: S46.912A Strain of unspecified muscle, fascia and tendon at shoulder and upper arm level, left arm, initial encounter (principal); W18.30XA Fall on same level, unspecified, initial encounter
CPT/HCPCS: 88108; 99283

== ENCOUNTER → 2023-12-22 | Outpatient (CLI) | payer BC, MEDICARE | END | disposition home or self-care (01) | LOC: RADMRIMAIN 18:37 | PROVIDERS: ATTEND Internal Medicine | DX: Z53.9 Procedure and treatment not carried out, unspecified reason (principal) ==

== ENCOUNTER → 2024-07-10 | Outpatient (CLI) | payer BC, MEDICARE ==
--- NOTE | 2024-07-10 09:03 | XR ---
EXAMINATION TYPE: XR cervical spine w flex/ext DATE OF EXAM: 07/10/2024 8:44 AM INDICATION: Patient age:Male; 64 years old; Reason for study: M45.0 Ankylosing Spondylosis; PHH, pain COMPARISON: Thoracic spine radiograph the same date TECHNIQUE: The cervical spine was imaged in frontal, lateral, bilateral oblique, flexion, and extensi on projections. FINDINGS: The osseous structures show normal alignment without evidence of an acute fracture . There is disc sp laurie with intravenous osteophytosis at C7-T1. Pedicles are intact. Soft tissues are within normal thomas its. The odontoid appears intact. Bilateral carotid bulb calcifications. IMPRESSION: 1. No fracture or dislocation. 2. Mild degenerative disc disease at C7-T1. [facility], , 07/10/2024 9:00 AM
[2024-07-10 09:04] LABS: Appearance,Urine Clear (Clear); Bilirubin,Urine Negative (Negative); Blood,Urine Moderate (Negative); Color,Urine Yellow; Glucose,Urine (UA) Negative (Negative); Hyaline Casts,Urine 5 /lpf (0-2); Ketones,Urine Negative (Negative); Leukocyte Esterase,Urine Negative (Negative); Mucus,Urine Occasional /hpf; Nitrite,Urine Negative (Negative); PH, Urine 5.5 (5.0-8.0); Protein,Urine Negative (Negative); RBC,Urine 10 /hpf (0-5); Specific Gravity,Urine 1.018 (1.001-1.035); Urobilinogen,Urine <2.0 mg/dL (<2.0); WBC,Urine <1 /hpf (0-5)
--- NOTE | 2024-07-10 09:11 | XR ---
EXAMINATION TYPE: XR thoracic spine complete DATE OF EXAM: 07/10/2024 8:44 AM INDICATION: Patient age:Male; 64 years old; Reason for study: M45.0 Ankylosing Spondylosis; PHH. pain COMPARISON: Cervical lumbar spine radiographs the same day. TECHNIQUE: 3 views of the thoracic spine in frontal, lateral, swimmer's projections. FINDINGS: No evidence of acute fracture. No vertebral body height loss identified. Multilevel anterior osteophy tosis with disc space narrowing and endplate sclerosis of the upper thoracic spine. Levoscoliotic cur vature of the upper thoracic spine with apex at T4-T5. No ossification of the ligaments. No bamboo sp ine appearance at this time. No erosions or reactive sclerosis identified. Elevation of the right hem idiaphragm. IMPRESSION: 1. No acute osseous pathology. 2. Multilevel degenerative disc disease without overt ankylosing spondylitis appearance. 3. Levoscoliotic curvature of the upper thoracic spine. [facility], , 07/10/2024 9:08 AM
--- NOTE | 2024-07-10 09:13 | XR ---
EXAMINATION TYPE: XR lumbosacral spine min 4V DATE OF EXAM: 07/10/2024 8:44 AM INDICATION: Patient age:Male; 64 years old; Reason for study: M45.0 Ankylosing Spondylosis; PHH. pain COMPARISON: Thoracic spine radiograph of the same date, CT urogram 04/09/2023 TECHNIQUE: Frontal, lateral, bilateral oblique, and coned down lateral L5-S1 views of the lumbar spin e were obtained. FINDINGS: There are 5 lumbar type vertebral bodies identified. No evidence of any acute osseous patho logy. No evidence of loss of vertebral body height is seen. There is normal alignment of the lumbar vertebral bodies. Multilevel anterior osteophytosis with disc space narrowing and endplate sclerosis of the lower lumbar spine. Most pronounced at L5-S1. Multilevel facet arthropathy at the lower lumbar spine. No ossification of the ligaments. No bamboo spine appearance at this time. No erosions or freddie ctive sclerosis identified. Partial visualization of hip arthroplasty change on the lateral view. SI joints appear unremarkable. Scattered atherosclerotic calcification of the aorta. IMPRESSION: 1. No acute osseous pathology. 2. Multilevel degenerative disc disease without overt ankylosing spondylitis appearance. [facility], , 07/10/2024 9:11 AM
[2024-07-10 11:26] LABS: Basophils # (A) 0.04 X 10*3/uL (0.00-0.10); Basophils % (A) 0.5 %; Eosinophils # (A) 0.06 X 10*3/uL (0.04-0.35); Eosinophils % (A) 0.7 %; HCT 41.1 % (39.6-50.0); HGB 13.5 g/dL (13.0-17.0); Lymphocytes # (A) 3.43 X 10*3/uL (0.90-5.00); Lymphocytes % (A) 42.3 %; MCH 32.3 pg (27.0-32.0); MCHC 32.8 g/dL (32.0-37.0); MCV 98.3 FL (80.0-97.0); Mean Platelet Volume 9.9 FL (9.5-12.2); Monocytes # (A) 0.52 X 10*3/uL (0.20-1.00); Monocytes % (A) 6.4 %; NRBC Per 100 WBC 0 X 10*3/uL (0.00-0.01); Neutrophils # (A) 4.01 X 10*3/uL (1.80-7.70); Neutrophils % (A) 49.6 %; Platelet Count 208 X 10*3/uL (140-440); RBC 4.18 X 10*6/uL (4.40-5.60); RDW 13.1 % (11.5-14.5)
[2024-07-10 17:54] LABS: Creatine Kinase 105 U/L (35-257); LDH 94 U/L (120-246)
[2024-07-10 17:55] LABS: % Iron Saturation 24.92 (15.00-50.00); ALT 12 U/L (10-49); AST 19 U/L (14-35); Albumin 4.2 g/dL (3.8-4.9); Albumin/Globulin Ratio 1.27 Ratio (1.60-3.17); Alkaline Phosphatase 58 U/L (41-126); BUN/Creat Ratio 11.58 Ratio (12.00-20.00); Blood Urea Nitrogen 13.9 mg/dL (9.0-27.0); Calcium 9.3 mg/dL (8.7-10.3); Carbon Dioxide 23.8 mmol/L (21.6-31.8); Chloride 103 mmol/L (96-109); Chol/HDL Ratio 3.01 Ratio; Globulin 3.3 g/dL (1.6-3.3); Glucose 97 mg/dL (70-110); Iron 76 UG/DL (65-175); Magnesium 1.9 mg/dL (1.5-2.4); Potassium 4.3 mmol/L (3.5-5.5); Prostate Specific Antigen 0.34 ng/mL (0.000-4.500); Sodium 140 mmol/L (135-145); Total Bilirubin 0.6 mg/dL (0.3-1.2); Total Iron Binding Capacity 305 UG/DL (228-460); Total Protein 7.5 g/dL (6.2-8.2)
[2024-07-11 14:36] LABS: Free Kappa Lt Chain Qnt, Serum 2.57 mg/dL (0.33-1.94); Free Lambda Lt Chain Qnt, Seru 1.6 mg/dL (0.57-2.63)
== END | disposition home or self-care (01) ==
LOC: LABWHC1 07:51
PROVIDERS: ATTEND Internal Medicine Rheumatology
DX: Z00.00 Encounter for general adult medical examination without abnormal findings (principal); I10 Essential (primary) hypertension; E78.2 Mixed hyperlipidemia; E55.9 Vitamin D deficiency, unspecified; M45.0 Ankylosing spondylitis of multiple sites in spine; D75.89 Other specified diseases of blood and blood-forming organs; N40.0 Benign prostatic hyperplasia without lower urinary tract symptoms; M45.9 Ankylosing spondylitis of unspecified sites in spine; Z51.81 Encounter for therapeutic drug level monitoring; R73.01 Impaired fasting glucose
CPT/HCPCS: 36415; 72052; 72072; 72110; 80053; 80061; 81001; 82306; 82525; 82550; 82607; 82728; 82746; 83010; 83036; 83540; 83550; 83615; 83735; 83883; 84153; 84443; 84550; 85025; 86480

== ENCOUNTER → 2024-08-30 | Outpatient (CLI) | payer BC, MEDICARE | END | disposition home or self-care (01) | LOC: RADMRIMAIN 10:58 | PROVIDERS: ATTEND Internal Medicine Rheumatology | DX: Z53.9 Procedure and treatment not carried out, unspecified reason (principal) ==

== ENCOUNTER → 2024-10-10 | Outpatient (CLI) | payer BC, MEDICARE ==
[2024-10-10 15:06] LABS: Basophils # (A) 0.03 X 10*3/uL (0.00-0.10); Basophils % (A) 0.4 %; Eosinophils # (A) 0.05 X 10*3/uL (0.04-0.35); Eosinophils % (A) 0.6 %; HCT 40.7 % (39.6-50.0); HGB 13.4 g/dL (13.0-17.0); Lymphocytes # (A) 3.17 X 10*3/uL (0.90-5.00); MCHC 32.9 g/dL (32.0-37.0); MCV 97.1 FL (80.0-97.0); Mean Platelet Volume 9.8 FL (9.5-12.2); Monocytes # (A) 0.54 X 10*3/uL (0.20-1.00); Monocytes % (A) 6.8 %; NRBC Per 100 WBC 0 X 10*3/uL (0.00-0.01); Neutrophils % (A) 51.8 %; Platelet Count 207 X 10*3/uL (140-440); RBC 4.19 X 10*6/uL (4.40-5.60); RDW 13.3 % (11.5-14.5); WBC 7.92 X 10*3/uL (4.50-10.00)
[2024-10-10 15:19] LABS: ALT 15 U/L (10-49); AST 25 U/L (14-35); Albumin 4.2 g/dL (3.8-4.9); Alkaline Phosphatase 67 U/L (41-126); Bilirubin, Conjugated 0.29 mg/dL (0.20-0.40); Bilirubin,Unconjugated 0.41 mg/dL (0.20-1.00); Total Bilirubin 0.7 mg/dL (0.3-1.2); Total Protein 7.2 g/dL (6.2-8.2)
[2024-10-10 15:51] LABS: Erythrocyte Sedimentation Rate 25 mm/Hr (0-20)
== END | disposition home or self-care (01) ==
LOC: LABWHC1 09:18
PROVIDERS: ATTEND Internal Medicine Rheumatology
DX: M45.0 Ankylosing spondylitis of multiple sites in spine (principal)
CPT/HCPCS: 36415; 80076; 82565; 85025; 85652; 86140

== ENCOUNTER → 2024-12-20 | Outpatient (CLI) | payer BC, MEDICARE ==
--- NOTE | 2024-12-21 09:35 | CA ---
Transthoracic Echo Report Name: Agustin Mendiola Age: 64 Gender: M : 1960 Exam Date: 12/20/2024 13:04 Exam Location: [facility] Ht (in): 66 Wt (lb): 215 Ordering Physician: Elena Novoa MD Attending/Referring Phys: Elena Novoa MD Lead Teller Shireen Del Rio, RD Procedure CPT: Indications: I34.0 nonrheumatic mitral valve regurgitation Cardiac Hx: Technical Quality: Fair Contrast 1: Total Dose (mL): Contrast 2: Total Dose (mL): MEASUREMENTS (Male / Female) Normal Values 2D ECHO LV Diastolic Diameter PLAX 5.5 cm 4.2 - 5.9 / 3.9 - 5.3 cm LV Systolic Diameter PLAX 3.4 cm IVS Diastolic Thickness 1.0 cm 0.6 - 1.0 / 0.6 - 0.9 cm LVPW Diastolic Thickness 1.2 cm 0.6 - 1.0 / 0.6 - 0.9 cm LV Relative Wall Thickness 0.4 RV Internal Dim ED PLAX 2.9 cm LA Systolic Diameter LX 4.7 cm 3.0 - 4.0 / 2.7 - 3.8 cm LV Diastolic Volume MOD BP 107.4 cm??? 67 - 155 / 56 - 104 cm??? LV Systolic Volume MOD BP 45.1 cm??? 22 - 58 / 19 - 49 cm??? LV Ejection Fraction MOD BP 58.0 % >= 55 % LV Cardiac Index MOD BP 1492.0 cm???/min???m??? LV Diastolic Volume MOD 4C 118.6 cm??? LV Systolic Volume MOD 4C 50.8 cm??? LV Ejection Fraction MOD 4C 57.1 % LV Cardiac Index MOD 4C 1622.7 cm???/min???m??? LV Diastolic Length 4C 8.0 cm LV Systolic Length 4C 6.8 cm LV Diastolic Volume MOD 2C 89.9 cm??? LV Systolic Volume MOD 2C 33.4 cm??? LV Ejection Fraction MOD 2C 62.8 % LV Cardiac Index MOD 2C 1352.7 cm???/min???m??? LV Diastolic Length 2C 7.3 cm LV Systolic Length 2C 5.6 cm LA Volume 57.9 cm??? 18 - 58 / 22 - 52 cm??? LA Volume Index 26.7 cm???/m??? 16 - 28 cm???/m??? M-MODE Aortic Root Diameter MM 3.3 cm LA Systolic Diameter MM 3.8 cm LA Ao Ratio MM 1.1 AV Cusp Separation MM 2.0 cm DOPPLER MV Area PHT 2.1 cm??? Mitral E Point Velocity 60.4 cm/s Mitral A Point Velocity 75.3 cm/s Mitral E to A Ratio 0.8 MV Deceleration Time 366.7 ms FINDINGS Left Ventricle Left ventricular ejection fraction is estimated at 50-55%. Left ventricular cavity size normal. Left ventricular wall thickness normal. Mildly reduced global left ventricular systolic function. Right Ventricle Normal right ventricular size and function. Right ventricular systolic pressure within normal limits. Right Atrium Mild right atrial dilatation. Left Atrium Mild left atrial dilatation. Mitral Valve Structurally normal mitral valve. Trace mitral regurgitation. No mitral stenosis. Aortic Valve Trileaflet aortic valve. No aortic valve stenosis or regurgitation. Tricuspid Valve Structurally normal tricuspid valve. Trace tricuspid regurgitation. No tricuspid stenosis. Pulmonic Valve Structurally normal pulmonic valve. Trace pulmonic regurgitation. No pulmonic stenosis. Pericardium No pericardial or pleural effusion. Aorta Normal size aortic root and proximal ascending aorta. CONCLUSIONS Normal biventricular systolic function No significant valvular abnormalities. Normal pulmonary artery systolic pressure Previewed by: Dr. Mark Hull MD (Electronically Signed) Final Date: 21 December 2024 09:35
== END | disposition home or self-care (01) ==
LOC: RADECHMAIN 12:26
PROVIDERS: ATTEND Internal Medicine
DX: I34.0 Nonrheumatic mitral (valve) insufficiency (principal)
CPT/HCPCS: 93306

== ENCOUNTER → 2024-12-20 | Outpatient (CLI) | payer BC, MEDICARE ==
--- NOTE | 2024-12-20 14:49 | US ---
EXAMINATION TYPE: US carotid duplex BILAT DATE OF EXAM: 12/20/2024 COMPARISON: NONE CLINICAL INDICATION: Male, 64 years old with history of I65.23 CAROTID STENOSIS BILATERAL; Patient do es not know reason for exam Additional History: .... TECHNIQUE: Grayscale, color Doppler and spectral Doppler evaluation of the bilateral carotid systems and vertebral arteries. Indirect Doppler criteria was utilized. FINDINGS: EXAM MEASUREMENTS: RIGHT: Peak Systolic Velocity (PSV) cm/sec ----- Right CCA: 101.0 ----- Right ICA: 103.0 ----- Right ECA: 107.0 ICA/CCA ratio: 1.0 RIGHT: End Diastole cm/sec ----- Right CCA: 31.2 ----- Right ICA: 31.2 ----- Right ECA: 18.2 LEFT: Peak Systolic Velocity (PSV) cm/sec ----- Left CCA: 102 ----- Left ICA: 98.1 ----- Left ECA: 94.2 ICA/CCA ratio: 1.0 LEFT: End Diastole cm/sec ----- Left CCA: 29.2 ----- Left ICA: 26.0 ----- Left ECA: 11.0 VERTEBRALS (direction of flow): Right Vertebral: Antegrade Left Vertebral: Antegrade Rhythm: Normal CHEMICAL PREPARER NOTES: Color Doppler imaging shows patency with blood flow throughout the carotid artery. Spectral waveforms are within normal limits. IMPRESSION: Right: Less than 50% stenosis of the carotid bifurcation. Left: Less than 50% stenosis of the carotid bifurcation. Criteria for Assigning % of Stenosis / Diameter reduction (Estimation based on the indirect measurements of the internal carotid artery velocities (ICA PSV). 1. Normal (no stenosis)=ICA PSV < 180 cm/s: ratio < 2.0: ICA EDV<40 cm/s. 2. Less than 50% stenosis=ICA PSV < 180 cm/s: ratio < 2.0: ICA EDV<40 cm/s. 3. 50 to 69% stenosis=ICA PSV of 180 to 230 cm/s: ration 2.0 ? 4.0: ICA EDV 40-100 cm/s. PSV 125-180 cm/sec and ICA/CCA PSV Ratio ? 2.0 is also consistent with 50-69% stenosis 4. Greater than 70% stenosis to near occlusion= ICA PSV > 230 cm/s: ratio > 4.0: ICA EDV > 100 cm/s. 5. Near occlusion= ICA PSV velocities may be low or undetectable: variable ratio and ICA EDV. 6. Total occlusion=unable to detect flow. [facility], , 12/20/2024 2:47 PM
== END | disposition home or self-care (01) ==
LOC: RADUSWWP 13:42
PROVIDERS: ATTEND Internal Medicine
DX: I65.23 Occlusion and stenosis of bilateral carotid arteries (principal)
CPT/HCPCS: 93880